=== PATIENT | female | born 1985 | race Caucasian/White ===

== ENCOUNTER 2019-03-24 21:38 | Emergency (ER) | payer OTHER ==
[~2019-03-24] VITALS: Ht 165.1 cm; Wt 54.4 kg
[2019-03-24] MEDS ORDERED: LIDOCAINE /MPF 1% VIAL 5 ML VIAL ONE (22:18)
--- NOTE | 2019-03-24 22:50 | NUR ---
ASSUMED CARE OF PT
--- NOTE | 2019-03-24 23:19 | NUR ---
PT REC'D SUTURES AND LACERATION WAS WRAPPED WITH KERLEX. TONGUE DEPRESSOR WAS USED TO KEEP THE FINGER STRAIGHT.
--- NOTE | 2019-03-24 23:24 | NUR ---
Patient discharged to home in stable condition. Written and verbal after care instructions given. Patient verbalizes understanding of instruction AND RX. PT AMBULATED OUT WITH A STEADY GAIT. PT IS GOING TO HAVE THE WOUND CHECKED IN 2 DAYS AND RETURN IN A WEEK FOR SUTURE REMOVAL.
[2019-03-24 23:28] VITALS: BP 137/70
== END 2019-03-24 23:28 | disposition home or self-care (01) ==
LOC: ER 21:43
DX: S61.411A Laceration without foreign body of right hand, initial encounter (principal); W25.XXXA Contact with sharp glass, initial encounter; Y93.G1 Activity, food preparation and clean up; Y92.89 Other specified places as the place of occurrence of the external cause; Y99.8 Other external cause status
CPT/HCPCS: 12001; 73130; 99283; A6403; J3490

== ENCOUNTER 2019-04-02 08:29 | Emergency (ER) | payer OTHER ==
[~2019-04-02] VITALS: Ht 165.1 cm; Wt 54.4 kg
[2019-04-02 08:33] VITALS: BP 115/78
--- NOTE | 2019-04-02 08:43 | NUR ---
SEEN AND EXAMINED BY .
[2019-04-02] MEDS ORDERED: SULFAMETH/TRIMETH 800/160 MG 1 UDTAB TABLET ONE (08:58)
[2019-04-02] MEDS ORDERED: CEPHALEXIN MONOHYDRATE 500 MG CAPSULE PO ONE ×2 (08:58→09:00)
[2019-04-02] MEDS ORDERED: SULFAMETH/TRIMETH 800/160 MG 1 UDTAB TABLET PO ONE (09:00)
--- NOTE | 2019-04-02 09:28 | NUR ---
Patient discharged to home in stable condition. Written and verbal after care instructions given. Patient verbalizes understanding of instruction.
== END 2019-04-02 09:30 | disposition home or self-care (01) ==
LOC: ER 08:32
DX: L02.511 Cutaneous abscess of right hand (principal)